=== PATIENT | female | born 1940 | race Caucasian/White ===

== ENCOUNTER → 2017-05-13 | Outpatient (CLI) | payer MEDICARE, OTHER ==
[~2017-05-13] MED LIST: ABAC300; ATOR10; Amaryl1 MG; BETA.05TC; CALGLU500; CARV25; CHOL10002; CIPR250 PO; DIGO.25; DIPATR PO; ESTR1; Fenofibrate134 MG; HYDACE10B PO; LORA10; METO100ER; NORT25; OMEP10ER; POTCHL20ER; VALS80; WARF5
== END | disposition home or self-care (01) ==
LOC: PLD 08:50 → LAB SHORT 08:50
DX: D22.5 Melanocytic nevi of trunk (principal)
CPT/HCPCS: 88305

== ENCOUNTER 2018-03-21 04:11 | Emergency (ER) | payer MEDICARE, OTHER ==
[~2018-03-21] VITALS: Ht 165.1 cm; Wt 77.1 kg
[2018-03-21] MEDS ORDERED: Percocet 5-3251 EACH PO (06:19)
== END 2018-03-21 06:36 | disposition home or self-care (01) ==
LOC: ER 04:11
DX: S20.211A Contusion of right front wall of thorax, initial encounter (principal); W18.30XA Fall on same level, unspecified, initial encounter; I10 Essential (primary) hypertension; Z91.040 Latex allergy status; Z79.899 Other long term (current) drug therapy; Z79.01 Long term (current) use of anticoagulants; I48.91 Unspecified atrial fibrillation; E11.9 Type 2 diabetes mellitus without complications
CPT/HCPCS: 71101; 99283-25

== ENCOUNTER 2018-05-21 04:34 | Emergency (ER) | payer MEDICARE, OTHER ==
[~2018-05-21 04:34] MED LIST changes: +Percocet 5-3251 EACH PO
== END 2018-05-21 04:42 | disposition left against medical advice (07) ==
LOC: ER 04:34
DX: Z53.21 Procedure and treatment not carried out due to patient leaving prior to being seen by health care provider (principal)

== ENCOUNTER 2018-07-02 13:20 | Emergency (ER) | payer MEDICARE, OTHER ==
[~2018-07-02] VITALS: Ht 167.6 cm; Wt 78.9 kg
--- NOTE | 2018-07-02 12:55 | NUR ---
PT SCHEDULED FOR CARDIOLITE TREADMILL TEST. BASELINE HEART RATE 65 BPM SINUS RHYTHM, BP 111 SYSTOLIC. UPON STANDING HEART RATE CONVERTS TO ATRIAL FIB WITH RVR, RATE 142-155 BPM, BP 84/56. DR. NICE CALLED. ORDERED .9%NS 500 ML IV BOLUS AND TO TAKE PT TO EMERGENCY ROOM. REPORT GIVEN TO JIL LANDIS. BPM IN ED 142 SYSTOLIC. REPEATED AND IT IS 135 SYSTOLIC. RHYTHM CONTINUES ATRIAL FIB WITH RVR, RATE 133 BPM.
[~2018-07-02 13:20] MED LIST changes: -ATOR10; +ATOR10 PO; -Amaryl1 MG; +Amaryl1 MG PO; -CHOL10002; +CHOL10002 PO; -Fenofibrate134 MG; +Fenofibrate134 MG PO; -LORA10; -METO100ER; +METO100ER PO; -NORT25; +NORT25 PO; -OMEP10ER; +OMEPRAZOLE MAGN20 MG PO; -POTCHL20ER; +POTCHL20ER PO; -VALS80; +VALS80 PO; -WARF5; +WARF5 PO; +[UNRECOGNIZED DRUG - OTHER] PO
[2018-07-02] MEDS ORDERED: ATOR40TA PO (13:56)
[2018-07-02] MEDS ORDERED: POTCHL10ER PO (13:56)
[2018-07-02] MEDS ORDERED: NORT25 PO (13:57)
[2018-07-02 14:00] LABS: BASOPHILS ABSOLUTE AUTO 0.03 K/mm3 (0.00-0.23); BASOPHILS PERCENT AUTO 0 % (0-2); EOSINOPHILS ABSOLUTE AUTO 0.08 K/mm3 (0.00-0.68); EOSINOPHILS PERCENT AUTO 1 % (0-6); Hematocrit 37.8 % (33.0-51.0); Hemoglobin 12.3 g/dL (11.5-16.0); IMMATURE GRAN ABSOLUTE AUTO 0.02 K/mm3 (0.00-0.10); IMMATURE GRAN PERCENT AUTO 0 % (0-1); LYMPHOCYTES ABSOLUTE AUTO 1.73 K/mm3 (0.84-5.20); LYMPHOCYTES PERCENT AUTO 20 % (21-46); MONOCYTES ABSOLUTE AUTO 0.76 K/mm3 (0.16-1.47); MONOCYTES PERCENT AUTO 9 % (4-13); Mean Corpuscular HGB 29.6 pg (26.0-34.0); Mean Corpuscular HGB Conc 32.5 g/dL (31.5-36.5); Mean Corpuscular Volume 91 fL (80-100); Mean Platelet Volume 10.6 fL (9.1-12.4); NEUTROPHILS ABSOLUTE AUTO 5.86 K/mm3 (1.96-9.15); NEUTROPHILS PERCENT AUTO 69 % (41-73); Platelet Count 237 K/mm3 (150-400); RDW Coefficient Variation 13.6 % (11.7-14.2); Red Blood Cell Count 4.15 M/mm3 (3.80-5.20); White Blood Cell Count 8.48 K/mm3 (4.00-11.30)
[2018-07-02 14:15] LABS: International Normalized Ratio 2.69; Prothrombin Time Results 26.1 Sec (9.7-11.5)
[2018-07-02 14:17] LABS: Alanine Aminotransfer (ALT/SGP 25 U/L (12-78); Albumin, Blood 3.5 g/dL (3.4-5.0); Albumin/Globulin Ratio 0.9 (0.8-1.8); Alk Phos 81 U/L (50-136); Anion Gap 5 mmol/L (6-16); Aspartate Aminotrans (AST/SGOT 16 U/L (12-37); Bilirubin, Total 0.5 mg/dL (0.1-1.0); Blood Urea Nitrogen 19 mg/dL (8-24); Bun/Creatinine Ratio 18.6 (12.0-20.0); CO2, Blood 30 mmol/L (21-32); Calcium, Blood 9.1 mg/dL (8.5-10.1); Chloride, Blood 106 mmol/L (98-108); Creatinine, Blood 1.02 mg/dL (0.40-1.00); Globulin, Blood 3.8 g/dL (2.2-4.0); Glomerular Filtration Rate 56 (60-); Glucose, Blood 96 mg/dL (70-99); Potassium, Blood 4.1 mmol/L (3.5-5.5); Sodium, Blood 141 mmol/L (136-145); Total Protein, Blood 7.3 g/dL (6.4-8.2); Troponin I <0.015 ng/mL (0.000-0.040)
== END 2018-07-02 15:44 | disposition home or self-care (01) ==
LOC: ER 13:20
PROVIDERS: Emergency Medicine
DX: I48.91 Unspecified atrial fibrillation (principal); Z91.040 Latex allergy status; Z79.899 Other long term (current) drug therapy; E11.9 Type 2 diabetes mellitus without complications; I10 Essential (primary) hypertension
CPT/HCPCS: 36415; 71046; 80053; 84484; 85025; 85610; 93005; 93010; 96365; 99285-25; J3475; J7030

== ENCOUNTER 2018-08-05 05:59 | Day surgery (SDC) | payer MEDICARE, OTHER ==
[~2018-08-05] VITALS: Ht 165.1 cm; Wt 80.0 kg
[~2018-08-05 05:59] MED LIST changes: +ATOR40TA PO; +BETA.05TO TOP; +CHOL10002; +Diovan Hct 1601 EAC1 PO; +METO100 PO; +Nortriptyline H10 MG PO; +POTCHL10ER PO; +STOOL SOFTENER1 EAC2 PO; +WARF7.5 PO
--- NOTE | 2018-08-05 07:41 | NUR ---
PT BACK TO RECOVERY ROOM POST PROCEDURE. ASLEEP BUT ROUSES EASILY TO VERBAL STIMULI. TR BAND IN PLACE OVER RIGHT RADIAL SITE. BRISK CAP REFILL NOTED TO RIGHT HAND AND FINGERS. VSS.
--- NOTE | 2018-08-05 09:48 | NUR ---
ALL AIR HAS BEEN LET OUT OF TR BAND. NO BLEEDING OR SWELLING NOTED. VSS. PT AND SPOUSE HAVE VERBALIZED UNDERSTANDING OF ALL DC INFO AND FOLLOW UP. WILL CONTINUE TO MONITOR SITE FOR ADDITIONAL 45 MINUTES TO WATCH FOR BLEEDING.
--- NOTE | 2018-08-05 10:30 | NUR ---
IV DC'D, CATH INTACT. PT OUT TO CAR VIA W/C. DENIES PAIN OR DISCOMFORT AT TIME OF DC.
== END 2018-08-05 22:43 | disposition home or self-care (01) ==
LOC: MHTC 05:59
DX: I25.10 Atherosclerotic heart disease of native coronary artery without angina pectoris (principal); I12.9 Hypertensive chronic kidney disease with stage 1 through stage 4 chronic kidney disease, or unspecified chronic kidney disease; E11.22 Type 2 diabetes mellitus with diabetic chronic kidney disease; N18.9 Chronic kidney disease, unspecified; I48.91 Unspecified atrial fibrillation; E78.5 Hyperlipidemia, unspecified; K21.9 Gastro-esophageal reflux disease without esophagitis; Z91.040 Latex allergy status; Z79.899 Other long term (current) drug therapy; Z79.01 Long term (current) use of anticoagulants
CPT/HCPCS: 93454; 99152; 99153; C1769; C1894; J1644; J2250; J3010; J7030; Q9967

== ENCOUNTER 2019-03-09 07:59 | Day surgery (SDC) | payer MEDICARE, OTHER ==
[~2019-03-09] VITALS: Ht 165.1 cm; Wt 79.6 kg
--- NOTE | 2019-03-09 08:48 | NUR ---
03/09/19 0848 Ian Amaro CALL LIGHT WITHIN REACH
== END 2019-03-09 10:00 | disposition home or self-care (01) ==
LOC: ORSCSDS 07:59
PROVIDERS: Ophthalmology
PROC: 08RJ3JZ Replacement of Right Lens with Synthetic Substitute, Percutaneous Approach (ICD-10-PCS; principal; 2019-03-09 09:30)
DX: H25.11 Age-related nuclear cataract, right eye (principal); E11.36 Type 2 diabetes mellitus with diabetic cataract; I48.91 Unspecified atrial fibrillation; Z79.84 Long term (current) use of oral hypoglycemic drugs; Z79.899 Other long term (current) drug therapy
CPT/HCPCS: 82947; J2001; J2250; J3010; J3301; J7040; V2632

== ENCOUNTER 2020-05-02 06:49 | Day surgery (SDC) | payer MEDICARE, OTHER ==
[~2020-05-02] VITALS: Ht 165.1 cm; Wt 79.4 kg
--- NOTE | 2020-05-02 07:54 | NUR ---
05/02/20 0754 Missy Pruitt 0711 TETRACAINE GTT ADMINISTERED PER ORDERS. 0713 PLEDGET PLACED IN LEFT EYE PER DR. MERCHANT'S ORDERS.
== END 2020-05-02 08:43 | disposition home or self-care (01) ==
LOC: ORSCSDS 06:49
PROVIDERS: Ophthalmology
PROC: 08RK3JZ Replacement of Left Lens with Synthetic Substitute, Percutaneous Approach (ICD-10-PCS; principal; 2020-05-02 08:00)
DX: H25.12 Age-related nuclear cataract, left eye (principal); E11.9 Type 2 diabetes mellitus without complications; I10 Essential (primary) hypertension; K57.30 Diverticulosis of large intestine without perforation or abscess without bleeding; E78.5 Hyperlipidemia, unspecified; I48.91 Unspecified atrial fibrillation; I25.10 Atherosclerotic heart disease of native coronary artery without angina pectoris; G47.30 Sleep apnea, unspecified; Z79.01 Long term (current) use of anticoagulants; Z79.899 Other long term (current) drug therapy
CPT/HCPCS: 82947; A9270; J2001; J2250; J3010; J3301; J7040; V2632

== ENCOUNTER 2020-06-06 01:21 | Emergency (ER) | payer MEDICARE, OTHER ==
[~2020-06-06] VITALS: Ht 165.1 cm; Wt 77.1 kg
[2020-06-06 02:06] LABS: BASOPHILS ABSOLUTE AUTO 0.03 K/mm3 (0.00-0.23); BASOPHILS PERCENT AUTO 0 % (0-2); EOSINOPHILS ABSOLUTE AUTO 0.09 K/mm3 (0.00-0.68); EOSINOPHILS PERCENT AUTO 1 % (0-6); Hematocrit 36.6 % (33.0-51.0); Hemoglobin 12.4 g/dL (11.5-16.0); IMMATURE GRAN ABSOLUTE AUTO 0.01 K/mm3 (0.00-0.10); IMMATURE GRAN PERCENT AUTO 0 % (0-1); LYMPHOCYTES ABSOLUTE AUTO 2.15 K/mm3 (0.84-5.20); LYMPHOCYTES PERCENT AUTO 26 % (21-46); MONOCYTES ABSOLUTE AUTO 0.72 K/mm3 (0.16-1.47); MONOCYTES PERCENT AUTO 9 % (4-13); Mean Corpuscular HGB 29.9 pg (26.0-34.0); Mean Corpuscular HGB Conc 33.9 g/dL (31.5-36.5); Mean Corpuscular Volume 88 fL (80-100); Mean Platelet Volume 10.6 fL (9.1-12.4); NEUTROPHILS ABSOLUTE AUTO 5.16 K/mm3 (1.96-9.15); NEUTROPHILS PERCENT AUTO 63 % (41-73); Platelet Count 251 K/mm3 (150-400); RDW Coefficient Variation 13.6 % (11.7-14.2); Red Blood Cell Count 4.15 M/mm3 (3.80-5.20); White Blood Cell Count 8.16 K/mm3 (4.00-11.30)
[2020-06-06 02:20] LABS: International Normalized Ratio 1.7; Prothrombin Time Results 17.7 Sec (9.7-11.5)
[2020-06-06 02:26] LABS: Alanine Aminotransfer (ALT/SGP 32 U/L (12-78); Albumin, Blood 3.4 g/dL (3.4-5.0); Albumin/Globulin Ratio 0.8 (0.8-1.8); Alk Phos 82 U/L (50-136); Anion Gap 4 mmol/L (6-16); Aspartate Aminotrans (AST/SGOT 27 U/L (12-37); Bilirubin, Total 0.3 mg/dL (0.1-1.0); Blood Urea Nitrogen 24 mg/dL (8-24); Bun/Creatinine Ratio 22.9 (12.0-20.0); CO2, Blood 30 mmol/L (21-32); Calcium, Blood 8.8 mg/dL (8.5-10.1); Chloride, Blood 105 mmol/L (98-108); Creatinine, Blood 1.05 mg/dL (0.40-1.00); Globulin, Blood 4.1 g/dL (2.2-4.0); Glomerular Filtration Rate 53 (60-); Glucose, Blood 124 mg/dL (70-99); Sodium, Blood 139 mmol/L (136-145); Total Protein, Blood 7.5 g/dL (6.4-8.2); Troponin I <0.015 ng/mL (0.000-0.040)
== END 2020-06-06 05:20 | disposition home or self-care (01) ==
LOC: ER 01:21
PROVIDERS: Emergency Medicine
DX: R07.9 Chest pain, unspecified (principal); I48.91 Unspecified atrial fibrillation; Z79.01 Long term (current) use of anticoagulants; Z79.899 Other long term (current) drug therapy; Z91.040 Latex allergy status
CPT/HCPCS: 36415; 71045; 80053; 83690; 83880; 84484; 85025; 85610; 93005; 93010; 99285-25

== ENCOUNTER 2020-12-31 14:22 | Day surgery (SDC) | payer MEDICARE, OTHER ==
[~2020-12-31] VITALS: Ht 167.6 cm; Wt 76.3 kg
[~2020-12-31 14:22] MED LIST changes: +AMLO5; +Nitrostat0.3 MG
== END 2020-12-31 16:30 | disposition home or self-care (01) ==
LOC: ORSCSDS 14:22
PROVIDERS: Internal Medicine Gastroenterology
PROC: 0DJD8ZZ Inspection of Lower Intestinal Tract, Via Natural or Artificial Opening Endoscopic (ICD-10-PCS; principal; 2020-12-31 15:30)
DX: Z12.11 Encounter for screening for malignant neoplasm of colon (principal); Z86.010 Personal history of colon polyps; K57.30 Diverticulosis of large intestine without perforation or abscess without bleeding; I48.91 Unspecified atrial fibrillation; Z79.01 Long term (current) use of anticoagulants; I25.10 Atherosclerotic heart disease of native coronary artery without angina pectoris; G47.33 Obstructive sleep apnea (adult) (pediatric); E88.81 Metabolic syndrome and other insulin resistance; E78.5 Hyperlipidemia, unspecified; Z79.899 Other long term (current) drug therapy
CPT/HCPCS: 82947; J0461; J2405; J2704; J7120

== ENCOUNTER → 2021-06-26 | Outpatient (CLI) | payer MEDICARE, OTHER | END | disposition home or self-care (01) | LOC: LAB SHORT 09:11 → LAB 09:11 | DX: L70.2 Acne varioliformis (principal); D48.5 Neoplasm of uncertain behavior of skin; A49.9 Bacterial infection, unspecified; L82.0 Inflamed seborrheic keratosis; L29.8 Other pruritus; L81.8 Other specified disorders of pigmentation; L81.4 Other melanin hyperpigmentation; R20.8 Other disturbances of skin sensation; R60.0 Localized edema | CPT/HCPCS: 87070; 87077; 87147; 87186; 87205 ==

== ENCOUNTER 2021-09-28 12:14 | Inpatient (IN) | payer MEDICARE, OTHER ==
[~2021-09-28] VITALS: Ht 167.6 cm; Wt 77.1 kg
[~2021-09-28 12:14] MED LIST changes: -AMLO5; +AMLO5 PO; -CHOL10002; +DIOVAN HCT 1601 EAC2 PO; -Diovan Hct 1601 EAC1 PO; +NORT10 PO; -Nortriptyline H10 MG PO; +SENN187 PO; -STOOL SOFTENER1 EAC2 PO; +VITAMIN D31000 UNI1 PO
[2021-09-28 14:35] LABS: BASOPHILS ABSOLUTE AUTO 0.03 K/mm3 (0.00-0.23); BASOPHILS PERCENT AUTO 0 % (0-2); EOSINOPHILS ABSOLUTE AUTO 0.06 K/mm3 (0.00-0.68); EOSINOPHILS PERCENT AUTO 1 % (0-6); Hematocrit 34.8 % (33.0-51.0); Hemoglobin 11.7 g/dL (11.5-16.0); IMMATURE GRAN ABSOLUTE AUTO 0.07 K/mm3 (0.00-0.10); IMMATURE GRAN PERCENT AUTO 1 % (0-1); LYMPHOCYTES ABSOLUTE AUTO 0.89 K/mm3 (0.84-5.20); LYMPHOCYTES PERCENT AUTO 9 % (21-46); MONOCYTES ABSOLUTE AUTO 0.65 K/mm3 (0.16-1.47); MONOCYTES PERCENT AUTO 6 % (4-13); Mean Corpuscular HGB 29.7 pg (26.0-34.0); Mean Corpuscular HGB Conc 33.6 g/dL (31.5-36.5); Mean Corpuscular Volume 88 fL (80-100); Mean Platelet Volume 10.1 fL (9.1-12.4); NEUTROPHILS ABSOLUTE AUTO 8.44 K/mm3 (1.96-9.15); NEUTROPHILS PERCENT AUTO 83 % (41-73); Platelet Count 211 K/mm3 (150-400); RDW Coefficient Variation 13.4 % (11.7-14.2); RDW Standard Deviation 43.6 fL (35.1-46.3); Red Blood Cell Count 3.94 M/mm3 (3.80-5.20); White Blood Cell Count 10.14 K/mm3 (4.00-11.30)
[2021-09-28 14:50] LABS: Albumin, Blood 3.4 g/dL (3.4-5.0); Albumin/Globulin Ratio 0.9 (0.8-1.8); Bilirubin, Total 0.2 mg/dL (0.1-1.0); Bun/Creatinine Ratio 18.4 (12.0-20.0); Calcium, Blood 9.1 mg/dL (8.5-10.1); Creatinine, Blood 0.98 mg/dL (0.40-1.00); Globulin, Blood 3.6 g/dL (2.2-4.0); International Normalized Ratio 2.38; Potassium, Blood 3.8 mmol/L (3.5-5.5); Prothrombin Time Results 23.6 Sec (9.7-11.5)
[2021-09-28] MEDS ORDERED: Lopressor 50 mg50 MG PO (16:05)
[2021-09-28] MEDS ORDERED: NITR.4SL SL (16:06)
[2021-09-28] MEDS ORDERED: WARF5 PO (16:08)
[2021-09-28] MEDS ORDERED: POLY500 PO (16:08)
[2021-09-29 04:49] LABS: BASOPHILS ABSOLUTE AUTO 0.03 K/mm3 (0.00-0.23); BASOPHILS PERCENT AUTO 0 % (0-2); EOSINOPHILS ABSOLUTE AUTO 0.07 K/mm3 (0.00-0.68); EOSINOPHILS PERCENT AUTO 1 % (0-6); Hematocrit 38.5 % (33.0-51.0); Hemoglobin 12.6 g/dL (11.5-16.0); IMMATURE GRAN ABSOLUTE AUTO 0.02 K/mm3 (0.00-0.10); IMMATURE GRAN PERCENT AUTO 0 % (0-1); LYMPHOCYTES PERCENT AUTO 11 % (21-46); MONOCYTES ABSOLUTE AUTO 1.07 K/mm3 (0.16-1.47); MONOCYTES PERCENT AUTO 10 % (4-13); Mean Corpuscular HGB 29.4 pg (26.0-34.0); Mean Corpuscular HGB Conc 32.7 g/dL (31.5-36.5); Mean Corpuscular Volume 90 fL (80-100); Mean Platelet Volume 10.2 fL (9.1-12.4); NEUTROPHILS ABSOLUTE AUTO 8.18 K/mm3 (1.96-9.15); NEUTROPHILS PERCENT AUTO 78 % (41-73); Platelet Count 179 K/mm3 (150-400); RDW Coefficient Variation 13.2 % (11.7-14.2); RDW Standard Deviation 43.9 fL (35.1-46.3); Red Blood Cell Count 4.28 M/mm3 (3.80-5.20); White Blood Cell Count 10.47 K/mm3 (4.00-11.30)
[2021-09-29 05:05] LABS: International Normalized Ratio 2.14; Prothrombin Time Results 21.4 Sec (9.7-11.5)
[2021-09-29 05:10] LABS: Bun/Creatinine Ratio 17.2 (12.0-20.0); Creatinine, Blood 0.81 mg/dL (0.40-1.00); Potassium, Blood 3.7 mmol/L (3.5-5.5)
--- NOTE | 2021-09-29 05:14 | NUR ---
ASSIMUED CARE OF PT AT 2030 HRS. PT IS A&OX4, ON BEDREST, DAS PLACED IN ED AT PT REQUEST, AND ABLE TO MAKE NEEDS KNOWN. PT ARRIVES TO THE FLOOR FROM THE ED FOR BREAKING HIP, SURGICAL CONSULTED. PAIN IS CONTROLLED WITH FENTANYL AND HYDROCODONE. PT HAS BEEN NPO SINCE MIDNIGHT FOR POTENTIAL SURGERY TODAY. PT ABLE TO REST BETWEEN CARES, SLEEPS 6+ HOURS THIS SHIFT. WILL CONTINUE TO MONITOR AND GIVE REPORT TO DAYSHIFT RN
--- NOTE | 2021-09-29 12:11 | NUR ---
PLAN TO PUT PATIENT IN 5LBS BUCKS TRACTION PER DR. SMALLWOOD.
--- NOTE | 2021-09-29 13:08 | NUR ---
pt placed in 5lbs bucks traction. tolerated well. reports pain level of 3/10 at this time.
--- NOTE | 2021-09-29 16:16 | NUR ---
SHIFT SUMMARY R HIP FX. PT TO BE NPO AT MIDNIGHT, VITAMIN K ADMINISTERED PER ORDERS INR TO BE RECHECKED IN AM. PT PAIN TOLERABLE, APPLIED TRACTION PER ORDERS. PT AA0X4. IV PATENT AND INFUSING.
[2021-09-30 05:43] LABS: International Normalized Ratio 1.49; Prothrombin Time Results 15.2 Sec (9.7-11.5)
--- NOTE | 2021-09-30 06:09 | NUR ---
PT VSS T/O NIGHT. CAP REFILL WNL. PAIN MGD PER EMAR W/REP RELIEF. PT NPO POST MIDNIGHT AWAITING SURGERY PLANS, IVF CONT PER ORDERS. DAS DRNG MELI URINE. PT ONLY ALLOWING MINIMAL REPOSITIONING, ASSISTED PRN.
[2021-09-30 08:42] LABS: Glucose, Blood 111 mg/dL (70-99)
--- NOTE | 2021-09-30 15:10 | NUR ---
09/30/21 1510 Anna Marie Saldana PATIENT HAD DAS IN PLACE WHEN ENTERING OR. DRAINING YELLOW URINE.
--- NOTE | 2021-09-30 19:59 | NUR ---
PT ARRIVED BACK FROM DAY SURGERY AT 1725. PT DROWSY BUT AWAKENS WHEN SPOKEN TO, SHE IS ORIENTED. PT DENIES PAIN. FAMILY PRESENT FOR SUPPORT.
--- NOTE | 2021-09-30 20:02 | NUR ---
SHIFT SUMMARY PT IS POD#0 FROM R KIMMY WITH DR. GENTILE. PT HAS DENIED PAIN POST OP. DERMABOND PRINEO DRESSING INTACT, NO DRAINAGE. PT DENIES FEELING HUNGRY. VSS. REPORT GIVEN TO WANDA LANDIS.
--- NOTE | 2021-10-01 04:10 | NUR ---
SHIFT SUMMARY POD 1 R KIMMY. PRINEO DRESSING REMAINS CDI WITH POLAR PACK IN PLACE. UP TO DANGLE AND STAND WITH 2 MAX ASSIST USING FWW + GB. DAS DRAINING CLEAR YELLOW URINE. 1 NORCO + TYLENOL FOR PAIN MANAGEMENT. 2-3L O2 VIA NC TO MAINTAIN O2 SATS >90%. ENCOURAGING COUGH + DEEP BREATHING. PLAN TO WORK WITH PT/OT TODAY. CALL LIGHT WITHIN REACH.
[2021-10-01 04:44] LABS: BASOPHILS ABSOLUTE AUTO 0.01 K/mm3 (0.00-0.23); BASOPHILS PERCENT AUTO 0 % (0-2); EOSINOPHILS PERCENT AUTO 0 % (0-6); Hematocrit 33.6 % (33.0-51.0); IMMATURE GRAN ABSOLUTE AUTO 0.07 K/mm3 (0.00-0.10); IMMATURE GRAN PERCENT AUTO 1 % (0-1); LYMPHOCYTES ABSOLUTE AUTO 0.48 K/mm3 (0.84-5.20); LYMPHOCYTES PERCENT AUTO 3 % (21-46); MONOCYTES PERCENT AUTO 6 % (4-13); Mean Corpuscular HGB 29.4 pg (26.0-34.0); Mean Corpuscular HGB Conc 32.7 g/dL (31.5-36.5); Mean Corpuscular Volume 90 fL (80-100); Mean Platelet Volume 10.4 fL (9.1-12.4); NEUTROPHILS PERCENT AUTO 91 % (41-73); Platelet Count 197 K/mm3 (150-400); RDW Coefficient Variation 13.1 % (11.7-14.2); RDW Standard Deviation 42.7 fL (35.1-46.3); Red Blood Cell Count 3.74 M/mm3 (3.80-5.20); White Blood Cell Count 14.56 K/mm3 (4.00-11.30)
[2021-10-01 05:05] LABS: Bun/Creatinine Ratio 20.5 (12.0-20.0); Calcium, Blood 8.6 mg/dL (8.5-10.1); Creatinine, Blood 0.73 mg/dL (0.40-1.00); Potassium, Blood 4.1 mmol/L (3.5-5.5)
--- NOTE | 2021-10-01 18:36 | NUR ---
SHIFT SUMMARY PT POD #1 FOR R TOTAL HIP. PT TO DISCHARGE TOMORROW TO [facility]. WORKED WITH PHYSICAL THERAPY AND UP WITH A 1 PERSON ASSIST. THIAGO LAYNE'Verenice TODAY. PT TOLERATING PO INTAKE WELL AND NO C/O PAIN THIS SHIFT. VSS. WILL REPORT TO WANDA LANDIS.
--- NOTE | 2021-10-02 04:34 | NUR ---
[employer] SYSTEMS ANALYST SUMMARY PT AAOX4 AND PLEASANT. 1 ASSIST W/ FWW AND GB WHEN OUT OF BED. PT AMBULATES WELL AND HAS HAD VERY LITTLE PAIN TONIGHT AND HAS DECLINED PAIN MEDS THUS FAR. PT VOIDED 700 ML EARLIER IN THE SHIFT AFTER HAVING DAS CATH REMOVED ON DAY SHIFT. R HIP DRESSING C/D/I. VSS, WILL CONTINUE TO MONITOR.
[2021-10-02 06:17] LABS: BASOPHILS ABSOLUTE AUTO 0.01 K/mm3 (0.00-0.23); BASOPHILS PERCENT AUTO 0 % (0-2); EOSINOPHILS ABSOLUTE AUTO 0.09 K/mm3 (0.00-0.68); EOSINOPHILS PERCENT AUTO 1 % (0-6); Hematocrit 28.1 % (33.0-51.0); Hemoglobin 9.3 g/dL (11.5-16.0); IMMATURE GRAN ABSOLUTE AUTO 0.04 K/mm3 (0.00-0.10); IMMATURE GRAN PERCENT AUTO 0 % (0-1); LYMPHOCYTES ABSOLUTE AUTO 1.33 K/mm3 (0.84-5.20); LYMPHOCYTES PERCENT AUTO 12 % (21-46); MONOCYTES ABSOLUTE AUTO 0.87 K/mm3 (0.16-1.47); MONOCYTES PERCENT AUTO 8 % (4-13); Mean Corpuscular HGB 29.4 pg (26.0-34.0); Mean Corpuscular HGB Conc 33.1 g/dL (31.5-36.5); Mean Corpuscular Volume 89 fL (80-100); Mean Platelet Volume 10.3 fL (9.1-12.4); NEUTROPHILS ABSOLUTE AUTO 8.81 K/mm3 (1.96-9.15); NEUTROPHILS PERCENT AUTO 79 % (41-73); Platelet Count 232 K/mm3 (150-400); RDW Coefficient Variation 13.5 % (11.7-14.2); RDW Standard Deviation 44.4 fL (35.1-46.3); Red Blood Cell Count 3.16 M/mm3 (3.80-5.20); White Blood Cell Count 11.15 K/mm3 (4.00-11.30)
[2021-10-02 06:34] LABS: Calcium, Blood 8.4 mg/dL (8.5-10.1); Creatinine, Blood 0.87 mg/dL (0.40-1.00); Potassium, Blood 3.6 mmol/L (3.5-5.5)
[2021-10-02 06:35] LABS: International Normalized Ratio 1.01; Prothrombin Time Results 10.6 Sec (9.7-11.5)
[2021-10-02 09:06] LABS: SARS-Cov-2 (COVID-19) PCR, MMC NEGATIVE (NEGATIVE)
--- NOTE | 2021-10-02 11:54 | NUR ---
DISCHARGE SUMMARY PT TRANSFERRED TO [facility] FOR REHAB. PT WORKED WELL WITH PHYSICAL THERAPY TODAY AND GETS UP WITH A 1 ASSIST W/FWW/GB. REPORTS SOME SORENESS AND TREATED PER EMR. REPORT CALLED TO KATALINA LANDIS.
== END 2021-10-02 11:39 | DRG 522 ==
LOC: ER 12:14 → SURS 18:08
PROVIDERS: Family Medicine; Hospitalist; Orthopaedic Surgery; Student in an Organized Health Care Education/Training Program; ADMIT Family Medicine
PROC: 0SR904A Replacement of Right Hip Joint with Ceramic on Polyethylene Synthetic Substitute, Uncemented, Open Approach (ICD-10-PCS; principal; 2021-09-30 12:30)
DX: S72.001A Fracture of unspecified part of neck of right femur, initial encounter for closed fracture (principal); I48.20 Chronic atrial fibrillation, unspecified; E78.00 Pure hypercholesterolemia, unspecified; I10 Essential (primary) hypertension; E11.9 Type 2 diabetes mellitus without complications; R79.1 Abnormal coagulation profile; K21.9 Gastro-esophageal reflux disease without esophagitis; Z20.822 Contact with and (suspected) exposure to COVID-19; Z79.01 Long term (current) use of anticoagulants; Z91.040 Latex allergy status; Z79.899 Other long term (current) drug therapy; Z90.710 Acquired absence of both cervix and uterus; Z90.49 Acquired absence of other specified parts of digestive tract; Z98.890 Other specified postprocedural states; Z90.721 Acquired absence of ovaries, unilateral; W18.30XA Fall on same level, unspecified, initial encounter; Y93.H2 Activity, gardening and landscaping
CPT/HCPCS: 36415; 51702; 72170; 73060; 73502; 80048; 80053; 82947; 85025; 85610; 90471; 90715; 93005; 93010; 94760; 96374-59; 96376-59; 97110; 97116; 97162; 97166; 97530; 97535; 99285-25; A9270; C1713; C1776; J0171; J0690; J0735; J1100; J1885; J2405; J2704; J2795; J3010; J7030; J7120; U0004

== ENCOUNTER → 2021-11-13 | Outpatient (CLI) | payer MEDICARE, OTHER ==
[~2021-11-13] MED LIST changes: +Lopressor 50 mg50 MG PO; +NITR.4SL SL; +POLY500 PO
== END | disposition home or self-care (01) ==
LOC: LAB SHORT 10:23 → LAB 10:23
DX: Z09 Encounter for follow-up examination after completed treatment for conditions other than malignant neoplasm (principal); Z86.14 Personal history of Methicillin resistant Staphylococcus aureus infection
CPT/HCPCS: 87070; 87205

== ENCOUNTER → 2022-06-06 | Outpatient (CLI) | payer MEDICARE, OTHER ==
[2022-06-07 13:56] LABS: Candida species (DNA Probe) Positive (NEGATIVE); G. vaginalis (DNA Probe) Negative (NEGATIVE); T. vaginalis (DNA Probe) Negative (NEGATIVE)
== END | disposition home or self-care (01) ==
LOC: LAB SHORT 15:06 → LAB 15:06
PROVIDERS: Family Medicine
DX: N89.8 Other specified noninflammatory disorders of vagina (principal)
CPT/HCPCS: 87480; 87510; 87660

== ENCOUNTER 2024-04-23 10:39 | Emergency (ER) | payer MEDICARE, OTHER ==
[~2024-04-23] VITALS: Ht 165.1 cm; Wt 77.1 kg
[2024-04-23 10:54] VITALS: BP 164/146
[2024-04-23] MEDS ORDERED: Dexamethasone Sod Phos 10 MG/ML 1ML VIAL PO ONE (11:10)
== END 2024-04-23 11:13 | disposition home or self-care (01) ==
LOC: ER 10:39
DX: L50.9 Urticaria, unspecified (principal); R19.7 Diarrhea, unspecified; I48.91 Unspecified atrial fibrillation; E11.9 Type 2 diabetes mellitus without complications; E78.5 Hyperlipidemia, unspecified; Z79.01 Long term (current) use of anticoagulants; Z79.899 Other long term (current) drug therapy; Z91.040 Latex allergy status
CPT/HCPCS: 99282; J1100

== ENCOUNTER → 2024-10-26 | Outpatient (CLI) | payer MEDICARE, OTHER ==
[2024-10-26 16:16] LABS: Prothrombin Time Results 10.8 Sec (9.7-11.5)
== END | disposition home or self-care (01) ==
LOC: LAB 14:38 → LAB SHORT 14:38
PROVIDERS: Internal Medicine
DX: Z51.81 Encounter for therapeutic drug level monitoring (principal); Z79.01 Long term (current) use of anticoagulants; I48.11 Longstanding persistent atrial fibrillation
CPT/HCPCS: 36416; 85610